=== PATIENT | male | born 1930 | race Caucasian/White ===

== ENCOUNTER → 2018-03-22 | Outpatient (CLI) | payer MEDICARE, BC ==
[~2018-03-22] MED LIST: ACET325 PO; ASCO500 PO; ASPI81EC PO; ATOR10 PO; CALCAVITDA PO; CEFP200 PO; DUTA.5 PO; ENAL5 PO; ERGO400 PO; FISH1000 PO; FOLBIC PO; FURO20 PO; FURO40 PO; MAGOXI400 PO; METO25ER PO; MSM PO; MULVITMIND PO; Micro-K10 MEQ PO; NIAC500ER PO; Norco 5-325 Ta1 EACH PO; OMEP40CA12 PO; POTCHL20ER PO; PROM25 PO; Robaxin500 MG PO; TAMS.4ER PO; VALS80 PO; VITAMIN D-32000 UNI1 PO; WARF2.5 PO; WARF5 PO; [UNRECOGNIZED DRUG - CODE] PO
[2018-03-22 13:07] LABS: BASOPHILS ABSOLUTE AUTO 0.02 K/mm3 (0.00-0.23); BASOPHILS PERCENT AUTO 0 % (0-2); EOSINOPHILS ABSOLUTE AUTO 0.06 K/mm3 (0.00-0.68); EOSINOPHILS PERCENT AUTO 1 % (0-6); Hematocrit 37.6 % (37.0-53.0); Hemoglobin 12.7 g/dL (13.5-17.5); IMMATURE GRAN ABSOLUTE AUTO 0.03 K/mm3 (0.00-0.10); IMMATURE GRAN PERCENT AUTO 0 % (0-1); LYMPHOCYTES ABSOLUTE AUTO 0.81 K/mm3 (0.84-5.20); LYMPHOCYTES PERCENT AUTO 12 % (21-46); MONOCYTES ABSOLUTE AUTO 0.78 K/mm3 (0.16-1.47); MONOCYTES PERCENT AUTO 11 % (4-13); Mean Corpuscular HGB 31.7 pg (26.0-34.0); Mean Corpuscular HGB Conc 33.8 g/dL (31.5-36.5); Mean Corpuscular Volume 94 fL (80-100); Mean Platelet Volume 10.6 fL (9.1-12.4); NEUTROPHILS ABSOLUTE AUTO 5.34 K/mm3 (1.96-9.15); NEUTROPHILS PERCENT AUTO 76 % (41-73); Platelet Count 139 K/mm3 (150-400); RDW Coefficient Variation 14.8 % (11.7-14.2); RDW Standard Deviation 51.3 fL (35.1-46.3); Red Blood Cell Count 4.01 M/mm3 (4.30-5.90); White Blood Cell Count 7.04 K/mm3 (4.00-11.30)
[2018-03-22 13:13] LABS: Bun/Creatinine Ratio 15.4 (12.0-20.0); Calcium, Blood 8.2 mg/dL (8.5-10.1); Creatinine, Blood 1.17 mg/dL (0.60-1.20); Potassium, Blood 3.7 mmol/L (3.5-5.5)
== END | disposition home or self-care (01) ==
LOC: LAB EV 13:04 → LAB SHORT 13:04
PROVIDERS: Family Medicine
DX: L03.90 Cellulitis, unspecified (principal)
CPT/HCPCS: 80048; 85025

== ENCOUNTER 2018-05-02 23:12 | Inpatient (IN) | payer MEDICARE, BC ==
[~2018-05-02] VITALS: Ht 175 cm; Wt 96.8 kg
[~2018-05-02 23:12] MED LIST changes: +CYAN500 PO; +ENAL10 PO; -ENAL5 PO; -[UNRECOGNIZED DRUG - CODE] PO
[2018-05-03] MEDS ORDERED: AMLO5 PO (00:30)
[2018-05-03] MEDS ORDERED: ELIQUIS2.5 MG PO (00:31)
[2018-05-03 00:42] LABS: BASOPHILS ABSOLUTE AUTO 0.02 K/mm3 (0.00-0.23); BASOPHILS PERCENT AUTO 0 % (0-2); EOSINOPHILS PERCENT AUTO 0 % (0-6); Hematocrit 37.4 % (37.0-53.0); IMMATURE GRAN ABSOLUTE AUTO 0.06 K/mm3 (0.00-0.10); IMMATURE GRAN PERCENT AUTO 1 % (0-1); LYMPHOCYTES ABSOLUTE AUTO 0.31 K/mm3 (0.84-5.20); LYMPHOCYTES PERCENT AUTO 3 % (21-46); MONOCYTES ABSOLUTE AUTO 0.77 K/mm3 (0.16-1.47); MONOCYTES PERCENT AUTO 8 % (4-13); Mean Corpuscular HGB 30.5 pg (26.0-34.0); Mean Corpuscular HGB Conc 32.1 g/dL (31.5-36.5); Mean Corpuscular Volume 95 fL (80-100); Mean Platelet Volume 10.6 fL (9.1-12.4); NEUTROPHILS ABSOLUTE AUTO 8.55 K/mm3 (1.96-9.15); NEUTROPHILS PERCENT AUTO 88 % (41-73); Platelet Count 153 K/mm3 (150-400); RDW Coefficient Variation 15.3 % (11.7-14.2); Red Blood Cell Count 3.93 M/mm3 (4.30-5.90); White Blood Cell Count 9.71 K/mm3 (4.00-11.30)
[2018-05-03 00:47] LABS: Influenza A Negative (NEGATIVE); Influenza B Negative (NEGATIVE)
[2018-05-03 01:03] LABS: Alanine Aminotransfer (ALT/SGP 25 U/L (12-78); Albumin/Globulin Ratio 0.8 (0.8-1.8); Alk Phos 90 U/L (50-136); Anion Gap 9 mmol/L (6-16); Aspartate Aminotrans (AST/SGOT 37 U/L (12-37); Bilirubin, Total 2.8 mg/dL (0.1-1.0); Blood Urea Nitrogen 16 mg/dL (8-24); Bun/Creatinine Ratio 18.3 (12.0-20.0); CO2, Blood 23 mmol/L (21-32); Calcium, Blood 8.5 mg/dL (8.5-10.1); Chloride, Blood 108 mmol/L (98-108); Creatinine, Blood 0.87 mg/dL (0.60-1.20); Globulin, Blood 3.7 g/dL (2.2-4.0); Glomerular Filtration Rate >60 (60-); Glucose, Blood 128 mg/dL (70-99); Potassium, Blood 4.2 mmol/L (3.5-5.5); Sodium, Blood 140 mmol/L (136-145); Total Protein, Blood 6.7 g/dL (6.4-8.2); Troponin I 0.036 ng/mL (0.000-0.040)
[2018-05-03 01:53] LABS: Source, Urine Clean Catch
[2018-05-03 01:55] LABS: Appearance, Urine Clear (Clear); Bilirubin, Urine Neg (Neg); Blood, Urine 1+ (Neg); Color, Urine Amber (P-Yellow); Glucose Qualitative, Urine Neg (Neg); Ketones, Urine 1+ (Neg); Leukocyte Esterase, Urine 1+ (Neg); Nitrite, Urine Neg (Neg); Protein, Urine 2+ (Neg); Urobilinogen, Urine 1+ (Normal)
[2018-05-03 02:01] LABS: Bacteria Many /hpf; Mucus Mod (0-Heavy); Red Blood Cells, Urine 0-2 /hpf (0-2); Squamous Epithelial Cells Few /hpf (Few)
[2018-05-03] MEDS ORDERED: Norco 10-325 T1 EACH PO (06:28)
--- NOTE | 2018-05-03 06:53 | NUR ---
ADMIT NOTE PATIENT ADMITTED EARLIER THIS SHIFT. PATIENT PLEASENT AND COOPERATIVE. PATIENT VERY HARD OF HEARING. AT THE BEDSIDE. PATIENT ORIENTED TO THE ROOM, UNIT, AND CALL LIGHT. PATIENT'S LEGS ARE VERY EDEMATOUS AND THE FOOT OF THE BED IS ELEVATED. PATIENT APPEARS TO BE SLEEPING WELL AT THIS TIME. CALL LIGHT WITHIN REACH. WILL CONTINUE TO MONITOR PATIENT AND REPORT TO ONCOMING RN.
[2018-05-03 09:12] LABS: BASOPHILS ABSOLUTE AUTO 0.01 K/mm3 (0.00-0.23); BASOPHILS PERCENT AUTO 0 % (0-2); EOSINOPHILS PERCENT AUTO 0 % (0-6); Hematocrit 37.5 % (37.0-53.0); IMMATURE GRAN ABSOLUTE AUTO 0.05 K/mm3 (0.00-0.10); IMMATURE GRAN PERCENT AUTO 1 % (0-1); LYMPHOCYTES ABSOLUTE AUTO 0.59 K/mm3 (0.84-5.20); LYMPHOCYTES PERCENT AUTO 7 % (21-46); MONOCYTES ABSOLUTE AUTO 0.77 K/mm3 (0.16-1.47); MONOCYTES PERCENT AUTO 9 % (4-13); Mean Corpuscular Volume 97 fL (80-100); Mean Platelet Volume 10.3 fL (9.1-12.4); NEUTROPHILS ABSOLUTE AUTO 7.55 K/mm3 (1.96-9.15); NEUTROPHILS PERCENT AUTO 84 % (41-73); Platelet Count 137 K/mm3 (150-400); RDW Coefficient Variation 15.6 % (11.7-14.2); RDW Standard Deviation 54.5 fL (35.1-46.3); Red Blood Cell Count 3.87 M/mm3 (4.30-5.90); White Blood Cell Count 8.97 K/mm3 (4.00-11.30)
--- NOTE | 2018-05-03 17:10 | NUR ---
SHIFT SUMMARY PT RESTING IN BED AND RECLINER THROUGHOUT THE DAY. VSS. ALERT AND ORIENTED X3. DENIES PAIN THROUGHOUT THE DAY. LUNG SOUNDS CLEAR. RIGHT LEG RED AND WARM, 3+ PITTING EDEMA NOTED, LEFT LEG 3+ PITTING EDEMA NOTED. UP TO RECLINER WITH 1 PERSON ASSIST WITH FWW AND GAIT BELT. PT TOLERATED WELL. AT BEDSIDE THROUGHOUT THE DAY. PER FAMILY, HOLDING ELIQUIS STARTING TODAY FOR SURGERY WITH DR. MCHUGH LATER THIS WEEK. WILL CONTINUE TO MONITOR.
--- NOTE | 2018-05-03 18:49 | NUR ---
PT STABLE FOR TRANSFER TO SURGICAL FLOOR. REPORT CALLED TO ANDERS HERNANDEZ ON SURGICAL FLOOR. PT TRANSFERED VIA WHEELCHAIR TO SURGICAL FLOOR WITH BELONGINGS.
--- NOTE | 2018-05-03 19:40 | NUR ---
PT TRANSFERRED INTO ROOM 222 FROM PCU. PT IS AWAKE, A&O X4, RESP UNLABORED, VSS. 1 PERSON ASSIST USING FWW AND A GAIT BELT. PT HAS VOIDED. LEGS ELEVATED. CALL LIGHT IN REACH. REPORT GIVEN TO FATEMEH HERNANDEZ.
--- NOTE | 2018-05-04 04:52 | NUR ---
SHIFT SUMMARY: PT RESTING IN BED MOST OF SHIFT. A&O X4, VS WNL. LEGS ELEVATED ON PILLOWS. PT REPORTS FEELING COMFORTABLE AND DENIES PAIN. R LEG SWOLLEN AND WARM TO THE TOUCH; 4+ PITTING EDEMA NOTED. 3+ PITTING EDEMA TO L LEG. PT OOB ONCE WITH 2 MOD ASSIST W/FWW. PT REPORTS FEELING WEAK UPON STANDING AND STATES HIS RIGHT LEG WILL OCC "GIVE OUT". VOIDING IN URINAL PRN WITH ASSISTANCE. BLADDER SCANNED POST VOID SHOWED 141 ML. PLAN FOR SURGERY THIS WEEK WITH DR MCHUGH. HOLDING [employer] AT THIS TIME.
--- NOTE | 2018-05-04 10:32 | NUR ---
Patient was sitting in a chair and alert when I entered the room. Patient's spouse, Gwen, is bedside. Patient openly shared about his family, his aston and his medical history. Patient described the some unique events in his past as God events. I listened empathically, highlighted the amazing triumphs in his life, provided a calming presence and provided prayer. Patient responded well and showed signs of an elevated mood.
--- NOTE | 2018-05-04 18:14 | NUR ---
SHIFT SUMMARY PT A&OX4, VSS. PT REP COUGH AND SOB IMPROVING. UP TO CHAIR T/O SHIFT. AMB SBA W/FWW, REP WEAKNESS, AND RLE CAN "GIVE OUT." CAN AMB TO BRP, VOIDING WELL, USES URINAL OVERNIGHT W/ASSIST. LISA PO, DENIES N&V. DENIES PAIN. PT HAS A PRESCHEDULED CT FLUID ASPIRATION FOR RLE EDEMA W/RADIOLOGY ON THURSDAY AT 1400 HERE (ELIQUIS HAS BEEN HELD SINCE THURSDAY ACCORDING TO OLMAN). PT NEEDS A PT/PTT LAB DRAW ON THURSDAY THAT WAS SUPPOSED TO BE ORDERED BY DR MCHUGH'S OFFICE. WILL CTM & TX PER EMAR UNTIL REPORT GIVEN TO ONCOMING FATEMEH RN.
--- NOTE | 2018-05-05 04:18 | NUR ---
SHIFT SUMMARY: PT HAS DONE WELL THIS SHIFT. A&O X4, VS WNL. TRANSFERED FROM CHAIR TO BED IN BEGINNING OF SHIFT. 2 MAX ASSIST STAND/PIVOT. PT REPORTS FEELING VERY WEAK IN R LEG. 4+ EDEMA TO RLE AND 3+ TO LLE. RIGHT LEG IS WARM TO TOUCH. USING URINAL AT BEDSIDE WITH ASSIST. VOIDING WELL. WILL START LASIX THIS AM. LISA PO, DENIES N/V. DENIES PAIN. PLAN FOR CT FLUID ASPIRATION TO RLE EDEMA WITH RADIOLOGY ON THURSDAY AT 1400. PROCEDURE SCHED OUT PATIENT. CONTINUE TO HOLD [email or web address].
--- NOTE | 2018-05-05 18:45 | NUR ---
SHIFT SUMMARY PT HAS BEEN A 1-2 ASSIST WHEN OOB. PLAN FOR DRAINAGE OF FLUID FROM RLE TOMORROW. FAMILY HAS BEEN PRESENT FOR SUPPORT. VSS. WILL MONITOR UNTIL REPORT TO ONCOMING RN.
[2018-05-06 04:45] LABS: International Normalized Ratio 1.25
--- NOTE | 2018-05-06 07:16 | NUR ---
SHIFT SUMMARY PT REMAINS ON FLOOR FOR PNEUMONIA, TX WITH ABX PER EMAR. PT IS GENERALLY ORIENTED BUT FORGETFUL AND DID ATTEMPT TO GET UP BY HIMSELF LAST NIGHT, SO BED ALARM IS ON FOR SAFETY. PT HAS SWELLING TO BLE, RIGHT LEG MORE SWOLLEN THAN LEFT AND RED AND WARM. USED BRAD LIFT UP TO BSC D/T PT WEAKNESS LAST NIGHT AND HE HAD A BM. LUNGS ARE DIM BUT CLEAR, THOUGH HE CONTINUES TO HAVE SOME SOB EVEN AT REST. PT USED URINAL, PEEING SMALL AMOUNTS AT A TIME. REPORT PASSED TO ONCOMING SHIFT.
--- NOTE | 2018-05-06 09:41 | NUR ---
ASSUMED CARE OF PT FROM DAVID GORDON.
--- NOTE | 2018-05-06 18:21 | NUR ---
SUMMARY NO ACUTE CHANGES SINCE ASSUMING CARE OF PT. WENT TO US FOR ASPIRATION OF R GROIN APPROXIMATELY NOON THIS SHIFT. PLEASANT AND COOPERATIVE. SPOUSE AT BEDSIDE FOR PORTION OF SHIFT. CALL LIGHT IN REACH. BED ALARM ON. PT MAX TWO PERSON ASSIST DURING SHIFT.
--- NOTE | 2018-05-07 05:10 | NUR ---
SHIFT SUMMARY PT REMAINS ON FLOOR FOR PNEUMONIA. NO ACUTE CHANGES OVERNIGHT. BED ALARM ON FOR SAFETY PT WILL WAKE UP AND TRY TO GET OUT OF BED TO USE THE BATHROOM. PT HAD A BM LAST NIGHT. HE HAS SOME NEW SWELLING IN THE SCROTUM, POSITIONED FOR COMFORT. PT STILL BECOMES SOB WITH EVEN MINIMAL EXERTION. 1-2 ASSIST FOR REPOSITIONING. WILL CTM UNTIL PASS TO NEXT SHIFT.
--- NOTE | 2018-05-07 18:12 | NUR ---
SUMMARY NO ACUTE CHANGES T/O SHIFT. PT WORKED W/THERAPY. SAT UP IN CHAIR MOST OF SHIFT. EATING DINNER AT THIS TIME. CALL LIGHT IN REACH.
--- NOTE | 2018-05-08 05:44 | NUR ---
SHIFT SUMMARY: NO ACUTE CHANGES OVER NIGHT. RIGHT LEG REMAINS SWOLLEN, RED AND WARM TO TOUCH. 3+ EDEMA NOTED, 2+ TO L LEG. SWELLING NOTED TO SCROTUM WELL. URINATING SMALL AMTS. CALLING APPROPRIATLY FOR ASSISTANCE WITH URINAL. PT TRANSFERED FROM CHAIR TO BED USING BRAD LIFT. PT APPEARS TO BE SOB ON EXERTION AND AT REST, HOWEVER WHEN ASKED, DENIES SOB. O2 SATS REMAIN STABLE ABOVE 92%. ALL VS WNL. LISA REG DIET, DENIES N/V. DRINKING [place] AMT. SALINE LOCKED EXCEPT WHEN GETTING SCHED IV ABX. PLAN FOR POSSIBLE SNF.
--- NOTE | 2018-05-08 16:00 | NUR ---
DISCHARGE: [facility] SENT TO [facility] PRESENT AT DISCHARGE. PT SENT WITH PAPERWORK. REPORT GIVEN TO SHAUNA AT [facility] NO SORES TO HEELS OR BOTTOM ON ASSESSMENT EARLIER TODAY. IV OUT WNL.
== END 2018-05-08 16:04 | DRG 194 ==
LOC: ER 23:12 → PCU 23:13 → SURS 23:13 → PCU 05-03 04:40 → ER 05-03 04:40 → SURS 05-03 04:49 → PCU 05-03 04:57 → SURS 05-03 18:45 → PCU 05-03 18:45 → SURS 05-05 16:19
PROVIDERS: Emergency Medicine; Internal Medicine; ADMIT Hospitalist
PROC: 0Y9 Anatomical Regions, Lower Extremities, Drainage (ICD-10-PCS; principal; 2018-05-07)
DX: J18.1 Lobar pneumonia, unspecified organism (principal); I50.32 Chronic diastolic (congestive) heart failure; I87.1 Compression of vein; I11.0 Hypertensive heart disease with heart failure; E78.5 Hyperlipidemia, unspecified; F03.90 Unspecified dementia, unspecified severity, without behavioral disturbance, psychotic disturbance, mood disturbance, and anxiety; I25.10 Atherosclerotic heart disease of native coronary artery without angina pectoris; I48.2 Chronic atrial fibrillation; N40.0 Benign prostatic hyperplasia without lower urinary tract symptoms; Z86.73 Personal history of transient ischemic attack (TIA), and cerebral infarction without residual deficits; Z95.0 Presence of cardiac pacemaker; R62.7 Adult failure to thrive; M71.22 Synovial cyst of popliteal space [Baker], left knee; Z66 Do not resuscitate; R60.0 Localized edema; Z87.891 Personal history of nicotine dependence
CPT/HCPCS: 10030; 36415; 71046; 76882; 80053; 81001; 83605; 83880; 84484; 85025; 85610; 85730; 87040; 87086; 87804; 93005; 93010; 96361; 96365; 96366; 96367; 97110; 97116; 97162; 97165; 97530; 97535; 99285-25; G0378; J0456; J0696; J1650; J7030; J7050

== ENCOUNTER 2018-05-27 18:03 | Inpatient (IN) | payer MEDICARE, BC ==
[~2018-05-27] VITALS: Ht 177.8 cm; Wt 97.9 kg
[~2018-05-27 18:03] MED LIST changes: +AMLO5 PO; +CHOL10002; +ELIQUIS2.5 MG PO; +Norco 10-325 T1 EACH PO; -VITAMIN D-32000 UNI1 PO
[2018-05-27] MEDS ORDERED: GUAI600T33 PO (18:37)
[2018-05-27] MEDS ORDERED: CEPH500 PO (18:38)
[2018-05-27] MEDS ORDERED: ALBU2.5V5 NEB (18:41)
[2018-05-27] MEDS ORDERED: SENN187 PO (18:43)
[2018-05-27 18:59] LABS: BASOPHILS ABSOLUTE AUTO 0.01 K/mm3 (0.00-0.23); BASOPHILS PERCENT AUTO 0 % (0-2); EOSINOPHILS ABSOLUTE AUTO 0.01 K/mm3 (0.00-0.68); EOSINOPHILS PERCENT AUTO 0 % (0-6); Hematocrit 36.1 % (37.0-53.0); IMMATURE GRAN ABSOLUTE AUTO 0.01 K/mm3 (0.00-0.10); IMMATURE GRAN PERCENT AUTO 0 % (0-1); LYMPHOCYTES ABSOLUTE AUTO 0.29 K/mm3 (0.84-5.20); LYMPHOCYTES PERCENT AUTO 6 % (21-46); MONOCYTES ABSOLUTE AUTO 0.88 K/mm3 (0.16-1.47); MONOCYTES PERCENT AUTO 17 % (4-13); Mean Corpuscular HGB 30.6 pg (26.0-34.0); Mean Corpuscular HGB Conc 30.5 g/dL (31.5-36.5); Mean Corpuscular Volume 101 fL (80-100); Mean Platelet Volume 10.6 fL (9.1-12.4); NEUTROPHILS ABSOLUTE AUTO 3.89 K/mm3 (1.96-9.15); NEUTROPHILS PERCENT AUTO 76 % (41-73); Platelet Count 130 K/mm3 (150-400); RDW Coefficient Variation 15.9 % (11.7-14.2); RDW Standard Deviation 59.1 fL (35.1-46.3); Red Blood Cell Count 3.59 M/mm3 (4.30-5.90); White Blood Cell Count 5.09 K/mm3 (4.00-11.30)
[2018-05-27] MEDS ORDERED: MIRALAX17 GM PO (18:59)
[2018-05-27] MEDS ORDERED: ELIQUIS2.5 MG PO (19:02)
[2018-05-27 19:11] LABS: Alanine Aminotransfer (ALT/SGP 22 U/L (12-78); Albumin, Blood 2.3 g/dL (3.4-5.0); Albumin/Globulin Ratio 0.6 (0.8-1.8); Alk Phos 98 U/L (50-136); Anion Gap 9 mmol/L (6-16); Aspartate Aminotrans (AST/SGOT 27 U/L (12-37); Blood Urea Nitrogen 13 mg/dL (8-24); Bun/Creatinine Ratio 15.9 (12.0-20.0); CO2, Blood 21 mmol/L (21-32); Calcium, Blood 7.7 mg/dL (8.5-10.1); Chloride, Blood 110 mmol/L (98-108); Creatinine, Blood 0.82 mg/dL (0.60-1.20); Globulin, Blood 4.1 g/dL (2.2-4.0); Glomerular Filtration Rate >60 (60-); Glucose, Blood 107 mg/dL (70-99); Potassium, Blood 3.8 mmol/L (3.5-5.5); Sodium, Blood 140 mmol/L (136-145); Total Protein, Blood 6.4 g/dL (6.4-8.2)
[2018-05-27 20:18] LABS: Source, Urine Clean Catch
[2018-05-27 20:20] LABS: Bilirubin, Urine Neg (Neg); Blood, Urine 1+ (Neg); Glucose Qualitative, Urine Neg (Neg); Ketones, Urine 1+ (Neg); Leukocyte Esterase, Urine 1+ (Neg); Nitrite, Urine Neg (Neg); Protein, Urine 2+ (Neg); Urobilinogen, Urine NORM (Normal)
[2018-05-27 20:25] LABS: Appearance, Urine Clear (Clear); Color, Urine Yellow (P-Yellow)
[2018-05-27 20:27] LABS: Bacteria Few /hpf; Mucus Light ({null, 0-Heavy}); Red Blood Cells, Urine 0-2 /hpf (0-2); Squamous Epithelial Cells Few /hpf (Few)
[2018-05-28 05:41] LABS: Hematocrit 35.1 % (37.0-53.0); Mean Corpuscular HGB 30.1 pg (26.0-34.0); Mean Corpuscular HGB Conc 31.3 g/dL (31.5-36.5); Platelet Count 174 K/mm3 (150-400); RDW Coefficient Variation 15.9 % (11.7-14.2); RDW Standard Deviation 55.5 fL (35.1-46.3); Red Blood Cell Count 3.66 M/mm3 (4.30-5.90); White Blood Cell Count 3.99 K/mm3 (4.00-11.30)
[2018-05-28 05:46] LABS: Mean Corpuscular Volume 96 fL (80-100)
[2018-05-28 06:05] LABS: Anion Gap 7 mmol/L (6-16); Blood Urea Nitrogen 13 mg/dL (8-24); Bun/Creatinine Ratio 13.7 (12.0-20.0); CO2, Blood 27 mmol/L (21-32); Chloride, Blood 109 mmol/L (98-108); Creatinine, Blood 0.95 mg/dL (0.60-1.20); Glomerular Filtration Rate >60 (60-); Glucose, Blood 84 mg/dL (70-99); Magnesium, Blood 2.2 mg/dL (1.6-2.4); Potassium, Blood 3.7 mmol/L (3.5-5.5); Sodium, Blood 143 mmol/L (136-145)
--- NOTE | 2018-05-28 07:43 | NUR ---
SHIFT SUMMARY PT NEW ADMIT TO FLOOR LAST NIGHT. HE SLEPT WELL T/O NIGHT. AOX4, VERY UNGA, FOLLOWS DIRECTIONS & ANSWERS QUESTIONS APPROPRIATELY. DENIES PAIN OR NAUSEA. REPORTS SOB W/VERY LITTLE ACTIVITY, EVEN W/REPOSITIONING IN BED. SPO2 >90% ON RA W/LUNG SOUNDS DIM T/O, PT HAS A DRY NONPRODUCTIVE COUGH. CALLS FOR ASSISTANCE W/URINAL & IS INCONTINENT/CONTINENT. HAS BEEN AT BEDSIDE T/O NIGHT. CALL LIGHT IN REACH.
--- NOTE | 2018-05-28 14:00 | NUR ---
IV DRESSING CHANGED, BLOOD PRESENT ON DRESSING. FLUSHES WELL AND BLOOD RETURN PRESENT.
--- NOTE | 2018-05-28 14:18 | NUR ---
Spiritual care visit conducted. Patient is lying on the bed with spouse Gwen bedside. Patient and Gwen fill me in on patient's medical history, about their 67 years of marriage and the good they find in each day. Patient and Gwen presented no spiritual crisis but welcomed a visit centered around God. I listened empathically, reinforced helpful attitudes and practices and provided prayer. Patient and Gwen responded well and showed signs of an elevated mood.
--- NOTE | 2018-05-28 18:59 | NUR ---
SHIFT SUMMARY PATIENT A&O X3. Q2 REPOSITION. DENIES ANY PAIN. C/O SOB AT TIMES. BREATHING TX PER RT PRN. ON RA, SATS >90%. BLE VERY EDEMATOUS. REDNESS TO BLE. LON HOSE IN PLACE. AT THE BEDSIDE. STRICT I&O. NO ACUTE CHANGES.
[2018-05-29 04:49] LABS: BASOPHILS ABSOLUTE AUTO 0.02 K/mm3 (0.00-0.23); BASOPHILS PERCENT AUTO 1 % (0-2); EOSINOPHILS ABSOLUTE AUTO 0.17 K/mm3 (0.00-0.68); EOSINOPHILS PERCENT AUTO 5 % (0-6); Hematocrit 35.6 % (37.0-53.0); Hemoglobin 11.3 g/dL (13.5-17.5); IMMATURE GRAN ABSOLUTE AUTO 0.01 K/mm3 (0.00-0.10); IMMATURE GRAN PERCENT AUTO 0 % (0-1); LYMPHOCYTES PERCENT AUTO 27 % (21-46); MONOCYTES ABSOLUTE AUTO 0.87 K/mm3 (0.16-1.47); MONOCYTES PERCENT AUTO 23 % (4-13); Mean Corpuscular HGB 30.2 pg (26.0-34.0); Mean Corpuscular HGB Conc 31.7 g/dL (31.5-36.5); Mean Corpuscular Volume 95 fL (80-100); NEUTROPHILS ABSOLUTE AUTO 1.71 K/mm3 (1.96-9.15); NEUTROPHILS PERCENT AUTO 45 % (41-73); Platelet Count 176 K/mm3 (150-400); RDW Coefficient Variation 15.8 % (11.7-14.2); RDW Standard Deviation 55.1 fL (35.1-46.3); Red Blood Cell Count 3.74 M/mm3 (4.30-5.90); White Blood Cell Count 3.78 K/mm3 (4.00-11.30)
[2018-05-29 05:16] LABS: Anion Gap 6 mmol/L (6-16); Blood Urea Nitrogen 14 mg/dL (8-24); Bun/Creatinine Ratio 14.8 (12.0-20.0); CO2, Blood 27 mmol/L (21-32); Calcium, Blood 7.9 mg/dL (8.5-10.1); Chloride, Blood 108 mmol/L (98-108); Creatinine, Blood 0.95 mg/dL (0.60-1.20); Glomerular Filtration Rate >60 (60-); Glucose, Blood 85 mg/dL (70-99); Potassium, Blood 3.5 mmol/L (3.5-5.5); Sodium, Blood 141 mmol/L (136-145)
--- NOTE | 2018-05-29 07:42 | NUR ---
NOT SHIFT SUMMARY PT HAS BEEN PLEASANT AND COOPERATIVE WITH CARE THIS NIGHT. HAS SLEPT MOST OF NIGHT. HAD INCREASED VIEW SCORE EARLY IN THE NIGHT RELATED TO FEVER. TREATED PER EMAR AND NOTIFIED POST MANAGER. FEVER RESOLVED AND VS NORMALIZED. ALSO NOTICED NEW SWELLING IN HIS PENIS EARLY IN THE MORNING WHILE HELPING WITH URINAL. PT WAS ABLE TO VOID APROX 30ML. INFORMED ONCOMING RN.
--- NOTE | 2018-05-29 20:32 | NUR ---
PT. LYING QUIETLY. US COMPLETED TODAY, PT. UP IN CHAIR WITH 2-PERSON ASSIST GAIT BELT AND FWW.
[2018-05-30 04:27] LABS: BASOPHILS ABSOLUTE AUTO 0.02 K/mm3 (0.00-0.23); BASOPHILS PERCENT AUTO 0 % (0-2); EOSINOPHILS ABSOLUTE AUTO 0.17 K/mm3 (0.00-0.68); EOSINOPHILS PERCENT AUTO 3 % (0-6); IMMATURE GRAN ABSOLUTE AUTO 0.01 K/mm3 (0.00-0.10); IMMATURE GRAN PERCENT AUTO 0 % (0-1); LYMPHOCYTES ABSOLUTE AUTO 0.76 K/mm3 (0.84-5.20); LYMPHOCYTES PERCENT AUTO 15 % (21-46); MONOCYTES ABSOLUTE AUTO 0.82 K/mm3 (0.16-1.47); MONOCYTES PERCENT AUTO 17 % (4-13); Mean Corpuscular HGB 30.6 pg (26.0-34.0); Mean Corpuscular HGB Conc 32.4 g/dL (31.5-36.5); Mean Corpuscular Volume 95 fL (80-100); Mean Platelet Volume 9.9 fL (9.1-12.4); NEUTROPHILS PERCENT AUTO 64 % (41-73); Platelet Count 165 K/mm3 (150-400); RDW Coefficient Variation 15.6 % (11.7-14.2); RDW Standard Deviation 54.3 fL (35.1-46.3); Red Blood Cell Count 3.59 M/mm3 (4.30-5.90); White Blood Cell Count 4.98 K/mm3 (4.00-11.30)
--- NOTE | 2018-05-30 06:14 | NUR ---
88 Y/O MALE SLEPT COMFORTABLY ALL EVENING. PTS HAS +3 EDEMA TO ENTIRE BODY NOTED. PT C/O COUGH AT TIMES WITH CEPACOL LOZENGE GIVEN WITH RELIEF FELT. PT DENIES PAIN OR NAUSEA. PT ALERT AND ORIENTED X 3. PTS BED IN LOW POSITION, BED ALARM APPLIED, CALL LIGHT AT SIDE.
--- NOTE | 2018-05-30 18:55 | NUR ---
PT. LYING QUIETLY, WAS GIVEN EXTRA DOSE OF LASIX THIS EVENING. NO NOTEABLE CHANGE IN HIS EDEMA YET AND BLE ARE STILL RED AND SWOLLEN. VSS AND HAS BEEN EATING WELL. LS ARE COARSE AND HAS A LOOSE MOIST COARSE COUGH BRINGING UP WHIT FOAMY SPUTUM. NO NOTEABLE CHANGES
--- NOTE | 2018-05-31 04:15 | NUR ---
88 Y/O MALE RESTED COMFORTABLY ALL EVENING. PTS VOIDING VIA URINAL (ATTENDS APPLIED) CLEAR YELLOW FLUID. PT HAS OCCASIONAL NON PRODUCTIVE COUGH. PT DENIES PAIN OR NAUSEA. PTS BED ALARM APPLIED, BED IN LOW POSITION, CALL LIGHT AT SIDE.
[2018-05-31 05:00] LABS: Anion Gap 5 mmol/L (6-16); Blood Urea Nitrogen 13 mg/dL (8-24); Bun/Creatinine Ratio 15.9 (12.0-20.0); CO2, Blood 29 mmol/L (21-32); Calcium, Blood 7.8 mg/dL (8.5-10.1); Chloride, Blood 105 mmol/L (98-108); Creatinine, Blood 0.82 mg/dL (0.60-1.20); Glomerular Filtration Rate >60 (60-); Glucose, Blood 89 mg/dL (70-99); Sodium, Blood 139 mmol/L (136-145)
--- NOTE | 2018-05-31 12:05 | NUR ---
Patient is being moved by OT from bed to chair when I arrive. I spoke with patient's , Gwen, while OT finished up. I then assessed patient's spiritual status. Patient stated that while he is having may medical issues he wonders if he will soon. Patient admits to losing hope sometimes. Patient states that he is ready for but also enjoys living. I facilitated a life review highlighting the many things that patient and Gwen have overcome. I provided emotional support, companionship and prayer. Patient and Gwen responded well and showed signs of restored aston and hope.
--- NOTE | 2018-05-31 19:22 | NUR ---
PATIENT ALERT BUT VERY FORGETFUL. COOPERATIVE. TRIES TO USE URINALBUT SOMETIMES MISSES URINAL. IV PATENT. REQUESTED OXYGEN ON. SATS WERE MID 90'S. SWELLING BILATERAL LEGS W/REDNESS TO CALVES W/LEFT DARKER RED THAN RT. EDEMA T/O BODY. GOOD APPETITE. REPORT TO NIGHT RN
--- NOTE | 2018-06-01 07:15 | NUR ---
remains swollen, able to use urinal but spills, a + o to self and place, WRANGELL and slow to respond, call light in reach, saline locked, 2 L via nc
--- NOTE | 2018-06-01 11:33 | NUR ---
Patient is lying in bed and alert with patient's , Gwen, bedside. Patient and Gwen had many stories to tell mostly revolving around their granddaughter who visited from [place] the previous day. I listened empathically, provided pastoral certified alcohol and drug counselor regarding and dying, provided companionship and prayer. Patient and Gwen responded well and thanked me for the visit.
--- NOTE | 2018-06-01 11:49 | NUR ---
PATIENT FORGETFUL. PLEASANT. LEFT LATERAL CALF NOT RED WAS YESTERDAY. RT CALFLIGHT RED W/ VERY FLAKEY SKIN. USES URINAL SOMETIMES WITH ASSISTANCE. SWELLING BLE HAS GONE DOWN A LITTLE. ABLE TO COUGH UP THICK PALE YELLOW SPUTUM. BED IN LOW POSITION. USES CALL LIGHT APPROPRIATELY. WCTM.
[2018-06-01 14:59] LABS: Anion Gap 5 mmol/L (6-16); Blood Urea Nitrogen 13 mg/dL (8-24); CO2, Blood 30 mmol/L (21-32); Calcium, Blood 7.9 mg/dL (8.5-10.1); Chloride, Blood 103 mmol/L (98-108); Creatinine, Blood 0.86 mg/dL (0.60-1.20); Glomerular Filtration Rate >60 (60-); Glucose, Blood 125 mg/dL (70-99); Potassium, Blood 3.5 mmol/L (3.5-5.5); Sodium, Blood 138 mmol/L (136-145)
--- NOTE | 2018-06-01 16:13 | NUR ---
ALERT. ORIENTED. FORGETFUL. PLEASANT. ABLE TO COUGH UP SPUTUM EARLY IN SHIFT. SWELLING IN LEGS LITTLE DECREASED TODAY COMPARED TO YESTERDAY. NO REAL CHANGES TO SWELLING ELSEWHERE. REDNESS TO LEGS DECREASED. USES CALL LIGHT APPROPRIATELY. TM
[2018-06-02 05:52] LABS: Anion Gap 5 mmol/L (6-16); Blood Urea Nitrogen 12 mg/dL (8-24); Bun/Creatinine Ratio 15.1 (12.0-20.0); CO2, Blood 31 mmol/L (21-32); Calcium, Blood 7.9 mg/dL (8.5-10.1); Chloride, Blood 105 mmol/L (98-108); Glomerular Filtration Rate >60 (60-); Glucose, Blood 90 mg/dL (70-99); Potassium, Blood 3.2 mmol/L (3.5-5.5); Sodium, Blood 141 mmol/L (136-145)
--- NOTE | 2018-06-02 07:19 | NUR ---
call light in reach, a+o but very [place] (he takes out his hearing aids at night) up with a lot of assistance, call light in reach, 2 L via nc, saline locked, report given to returing day shift
--- NOTE | 2018-06-02 08:58 | NUR ---
PT GAVE THIS STUDENT RN PERMISSION YESTERDAY TO CARE FOR HIM TODAY
--- NOTE | 2018-06-02 14:37 | NUR ---
dr.van toledo was in to see patient.
--- NOTE | 2018-06-02 14:42 | NUR ---
Spiritual Care visit conducted. Patient is sitting up on a chair and alert. Patient informed me that he had the doctors "stumped." Patient stated that he is hoping the "doctors come up with some answers soon." I listened empathically, provided companionship, and normalized patient's experience. Patient thanked me for the visit.
--- NOTE | 2018-06-02 19:23 | NUR ---
ALERT. ORIENTED. VERY FORGETFUL. EVERY TIME RN GOES IN AND ASKED PATIENT IF HE'S USED HIS FLUTTER VALVE HE STS"NOONE HAS SHOWED ME. " RN AND STUDENT RN HAVE SHOWN PATIENT MULTIPLE TIMES HOW TO USE. STILL HARSH MOIST SOUNDING COUGH. IS ABLE TO COUGH UP SPUTUM. COOPERATIVE. USES CALL LIGHT APPROPRIATELY. REPORT TO NIGHT RN
[2018-06-03 05:50] LABS: Anion Gap 5 mmol/L (6-16); Blood Urea Nitrogen 13 mg/dL (8-24); Bun/Creatinine Ratio 15.8 (12.0-20.0); CO2, Blood 32 mmol/L (21-32); Calcium, Blood 7.9 mg/dL (8.5-10.1); Chloride, Blood 105 mmol/L (98-108); Creatinine, Blood 0.82 mg/dL (0.60-1.20); Glomerular Filtration Rate >60 (60-); Glucose, Blood 84 mg/dL (70-99); Potassium, Blood 3.3 mmol/L (3.5-5.5); Sodium, Blood 142 mmol/L (136-145)
--- NOTE | 2018-06-03 07:24 | NUR ---
a+o, gambell without hearing aids, down for xray, call light in reach, saline locked, 2 L via nc, walking rounds completed with day staff.swelling remains
--- NOTE | 2018-06-03 14:03 | NUR ---
Spiritual care visit conducted. Patient once again took me down his memory carlos enrique. 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 Patient seems to energize himself as he tells his story. Patient's is bedside and helped fill in some details as needed in patient's story. I listened empathically, provided pastoral pet counselor, companionship and prayer. Patient responded well and showed evidence of an elevated mood.
--- NOTE | 2018-06-03 16:28 | NUR ---
PT IS ALERT AND ORIENTED AND COOPERATIVE WITH CARE. HE GOT OUT OF BED AND INTO THE RECLINER THIS MORNING BEFORE BREAKFAST AND HAS STAYED THERE SINCE. HE IS LAYING BACK IN THE RECLINER WITH HIS FEET UP. HE USES THE URINAL INDEPENDENTLY AND CALLS TO HAVE IT EMPTIED. HIS IS AT THE BEDSIDE. HE HAS BEEN NAPPING INTERMITTENTLY. HE PARTICIPATED WITH PHYSICAL THERAPY THIS AFTERNOON. HE HAS A WET, PRODUCTIVE COUGH PRODUCTING CLEAR SPUTUM. ON 2L O2 VIA NC. WILL CONTINUE TO MONITOR
--- NOTE | 2018-06-03 19:01 | NUR ---
Initial Visit: Palliative Care Consult for Goals of Care/Medically Fragile Pt is A&Ox4 and denies pain at this time. He reports pain in his left knee with exertion. Pt reports mild anxiety due to not knowing what his medical issue is for this hospital stay. Pt deneis SOB at this time. Engaged in therapeutic discussion regarding goals of care. Pt reports living at home with his Gwen. 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 He and his were not able to have children of their ownn. He and his Gwen adopted 2 boys and 2 girls. Pt reports his energy level has been declining recently. He requires the use of a walker at home. Currently during hospital stay he is a 1 person assist transfer with FWW. Pt experiences occasional incontinence. At base line Pt is able to bath and dress him self. He currently needs assistance with bathing and dressing. Listened as Pt expressed concern regarding his increased weakness and swelling. Educated Pt on diseas process of CHF. Suggested to have routine discussions with his PCP regarding his disease process and trajectory in order to plan accordingly. Engaged in therapeutic discussion of advanced care planning. Suggested to be proactive with his need for assistance with care. Pt reports his has been helpful but sees her strength declining somewhat. Suggested to consider hiring in home caregives to help with his needs. Also suggested the importance to be proactive with his disease process and to keep in mind at some point he may need higher level of care such as assisted living. V/U made by Pt. Pt reports no other concerns at this time. Spoke with Pt's bedside nurse Vani and she reported concerns regarding Pt's ability to help Pt with some of his needs. No other concerns reported at this time. Plan: Will place a social service consult for information regarding home care agencies. Will remain available.
--- NOTE | 2018-06-03 23:12 | NUR ---
06/03/18 6071 ASSISTED FROM LOUNGE CHAIR TO BED BY MARIA INES. HAD REFUSED TO GO BACK TO BED EARLIER. ATTENDS APPLIED AFTER MARY ELLEN-CARE. OFFERED TO TURN ON SIDE BUT REFUSED FOR NOW. BED ALARM ON. VITALS STABLE. VOIDING FREQUENTLY DUE TO LASIX MED. LEGS UP ON PILLOWS TO HELP DECREASE SWELLING.
[2018-06-04 05:14] LABS: Anion Gap 5 mmol/L (6-16); Blood Urea Nitrogen 14 mg/dL (8-24); Bun/Creatinine Ratio 16.3 (12.0-20.0); CO2, Blood 32 mmol/L (21-32); Calcium, Blood 7.9 mg/dL (8.5-10.1); Chloride, Blood 105 mmol/L (98-108); Creatinine, Blood 0.86 mg/dL (0.60-1.20); Glomerular Filtration Rate >60 (60-); Glucose, Blood 85 mg/dL (70-99); Potassium, Blood 3.3 mmol/L (3.5-5.5); Sodium, Blood 142 mmol/L (136-145)
[2018-06-04 07:59] LABS: BASOPHILS ABSOLUTE AUTO 0.01 K/mm3 (0.00-0.23); BASOPHILS PERCENT AUTO 0 % (0-2); EOSINOPHILS ABSOLUTE AUTO 0.25 K/mm3 (0.00-0.68); EOSINOPHILS PERCENT AUTO 5 % (0-6); Hematocrit 34.3 % (37.0-53.0); Hemoglobin 11.1 g/dL (13.5-17.5); IMMATURE GRAN ABSOLUTE AUTO 0.02 K/mm3 (0.00-0.10); IMMATURE GRAN PERCENT AUTO 0 % (0-1); LYMPHOCYTES ABSOLUTE AUTO 0.74 K/mm3 (0.84-5.20); LYMPHOCYTES PERCENT AUTO 16 % (21-46); MONOCYTES ABSOLUTE AUTO 0.63 K/mm3 (0.16-1.47); MONOCYTES PERCENT AUTO 14 % (4-13); Mean Corpuscular HGB 30.5 pg (26.0-34.0); Mean Corpuscular HGB Conc 32.4 g/dL (31.5-36.5); Mean Corpuscular Volume 94 fL (80-100); Mean Platelet Volume 10.6 fL (9.1-12.4); NEUTROPHILS ABSOLUTE AUTO 3.03 K/mm3 (1.96-9.15); NEUTROPHILS PERCENT AUTO 65 % (41-73); Platelet Count 201 K/mm3 (150-400); RDW Standard Deviation 51.9 fL (35.1-46.3); Red Blood Cell Count 3.64 M/mm3 (4.30-5.90); White Blood Cell Count 4.68 K/mm3 (4.00-11.30)
--- NOTE | 2018-06-04 14:03 | NUR ---
Patient is discouraged this day. Provided pastoral camp head counselor, emotional support and prayer. Patient responded well and showed signs of an elevated mood.
[2018-06-04 23:09] LABS: Anion Gap 7 mmol/L (6-16); Blood Urea Nitrogen 18 mg/dL (8-24); Bun/Creatinine Ratio 18.4 (12.0-20.0); CO2, Blood 33 mmol/L (21-32); Calcium, Blood 8.7 mg/dL (8.5-10.1); Chloride, Blood 101 mmol/L (98-108); Creatinine, Blood 0.98 mg/dL (0.60-1.20); Glomerular Filtration Rate >60 (60-); Glucose, Blood 110 mg/dL (70-99); Magnesium, Blood 1.9 mg/dL (1.6-2.4); Potassium, Blood 3.3 mmol/L (3.5-5.5); Sodium, Blood 141 mmol/L (136-145)
[2018-06-05 04:55] LABS: BASOPHILS ABSOLUTE AUTO 0.02 K/mm3 (0.00-0.23); BASOPHILS PERCENT AUTO 0 % (0-2); EOSINOPHILS ABSOLUTE AUTO 0.13 K/mm3 (0.00-0.68); EOSINOPHILS PERCENT AUTO 3 % (0-6); Hematocrit 35.6 % (37.0-53.0); Hemoglobin 11.3 g/dL (13.5-17.5); IMMATURE GRAN ABSOLUTE AUTO 0.01 K/mm3 (0.00-0.10); IMMATURE GRAN PERCENT AUTO 0 % (0-1); LYMPHOCYTES ABSOLUTE AUTO 0.76 K/mm3 (0.84-5.20); LYMPHOCYTES PERCENT AUTO 15 % (21-46); MONOCYTES ABSOLUTE AUTO 0.74 K/mm3 (0.16-1.47); MONOCYTES PERCENT AUTO 15 % (4-13); Mean Corpuscular HGB 29.7 pg (26.0-34.0); Mean Corpuscular HGB Conc 31.7 g/dL (31.5-36.5); Mean Corpuscular Volume 94 fL (80-100); Mean Platelet Volume 9.9 fL (9.1-12.4); NEUTROPHILS ABSOLUTE AUTO 3.38 K/mm3 (1.96-9.15); NEUTROPHILS PERCENT AUTO 67 % (41-73); Platelet Count 218 K/mm3 (150-400); RDW Coefficient Variation 14.8 % (11.7-14.2); RDW Standard Deviation 51.4 fL (35.1-46.3); White Blood Cell Count 5.04 K/mm3 (4.00-11.30)
[2018-06-05 05:57] LABS: Albumin, Blood 2.6 g/dL (3.4-5.0); Anion Gap 6 mmol/L (6-16); Blood Urea Nitrogen 17 mg/dL (8-24); Bun/Creatinine Ratio 17.9 (12.0-20.0); CO2, Blood 33 mmol/L (21-32); Calcium, Blood 8.6 mg/dL (8.5-10.1); Chloride, Blood 101 mmol/L (98-108); Creatinine, Blood 0.95 mg/dL (0.60-1.20); Glomerular Filtration Rate >60 (60-); Glucose, Blood 103 mg/dL (70-99); Phosphorus, Blood 3.1 mg/dL (2.5-4.9); Sodium, Blood 140 mmol/L (136-145)
--- NOTE | 2018-06-05 07:45 | NUR ---
patient slept well this shift but this morning he says he did not, also says he is having burning pain in his penis and feels like he cant pee. patient had 3200 ml out. paatient may need pyridium. passed this info to day shift nurse Ashely. Spoke to Dr Nova regarding his status.
[2018-06-05 14:17] LABS: Source, Urine Catheter
[2018-06-05 14:30] LABS: Appearance, Urine Clear (Clear); Bilirubin, Urine Neg (Neg); Blood, Urine 2+ (Neg); Color, Urine Yellow (P-Yellow); Glucose Qualitative, Urine Neg (Neg); Ketones, Urine Neg (Neg); Leukocyte Esterase, Urine Neg (Neg); Nitrite, Urine Neg (Neg); Protein, Urine Neg (Neg); Specific Gravity, Urine 1.015 (1.003-1.022); Urobilinogen, Urine NORM (Normal)
[2018-06-05 14:40] LABS: Bacteria Not Seen /hpf; Squamous Epithelial Cells Not Seen /hpf (Few); White Blood Cells, Urine 0-2 /hpf (0-5)
[2018-06-05 14:55] LABS: Anion Gap 6 mmol/L (6-16); Blood Urea Nitrogen 19 mg/dL (8-24); Bun/Creatinine Ratio 17.6 (12.0-20.0); CO2, Blood 34 mmol/L (21-32); Calcium, Blood 8.8 mg/dL (8.5-10.1); Chloride, Blood 99 mmol/L (98-108); Creatinine, Blood 1.08 mg/dL (0.60-1.20); Glomerular Filtration Rate >60 (60-); Glucose, Blood 133 mg/dL (70-99); Potassium, Blood 3.3 mmol/L (3.5-5.5); Sodium, Blood 139 mmol/L (136-145)
--- NOTE | 2018-06-05 17:36 | NUR ---
SHIFT SUMMARY PT AXO, PLEASANT AND COOPERATIVE WITH CARE THOUGH [facility]. PT COMPLAINED THIS MORNING OF BEING UNABLE TO VOID. AIR DRIER MACHINE OPERATOR BLADDER SCAN REVEALED [address] MARIN NOTIFIED WHO ORDERED REBOLLAR FOR RETENTION. PT WAS IN PAIN THAT WAS IMPROVED AFTER REBOLLAR WAS PLACED. VSS. IV PATENT AND SALINE LOCKED AT THIS TIME. BED IN LOW POSITION, CALL LIGHT WITHIN REACH. BLISTER ON R ANTERIOR GOMEZ PUNCTURED AND DRAINED PER DR MARIN. DRESSING IN PLACE AT THIS TIME. CONTINUES TO DRAIN.
[2018-06-06 05:32] LABS: Anion Gap 6 mmol/L (6-16); Blood Urea Nitrogen 19 mg/dL (8-24); Bun/Creatinine Ratio 17.8 (12.0-20.0); CO2, Blood 36 mmol/L (21-32); Calcium, Blood 8.8 mg/dL (8.5-10.1); Chloride, Blood 99 mmol/L (98-108); Creatinine, Blood 1.07 mg/dL (0.60-1.20); Glomerular Filtration Rate >60 (60-); Glucose, Blood 91 mg/dL (70-99); Magnesium, Blood 1.8 mg/dL (1.6-2.4); Potassium, Blood 3.5 mmol/L (3.5-5.5); Sodium, Blood 141 mmol/L (136-145)
--- NOTE | 2018-06-06 18:41 | NUR ---
SHIFT SUMMARY PT AXO, PLEASANT AND COOPERATIVE WITH CARE, THOUGH [facility]. BLOOD PRESENT IN REBOLLAR TUBING, DR MARIN AWARE. JELLY BANDAGE APPLIED TO LEGS. WOUND CARE COMPLETED THIS SHIFT, PICTURES IN CHART. IV PATENT AND SALINE LOCKED. UP TO CHAIR X1 THIS SHIFT. SEE IxO. BED IN LOW POSITION, CALL LIGHT WITHIN REACH
[2018-06-07 05:47] LABS: BASOPHILS ABSOLUTE AUTO 0.03 K/mm3 (0.00-0.23); BASOPHILS PERCENT AUTO 1 % (0-2); EOSINOPHILS ABSOLUTE AUTO 0.12 K/mm3 (0.00-0.68); EOSINOPHILS PERCENT AUTO 2 % (0-6); Hematocrit 36.8 % (37.0-53.0); IMMATURE GRAN ABSOLUTE AUTO 0.01 K/mm3 (0.00-0.10); IMMATURE GRAN PERCENT AUTO 0 % (0-1); LYMPHOCYTES ABSOLUTE AUTO 1.15 K/mm3 (0.84-5.20); LYMPHOCYTES PERCENT AUTO 18 % (21-46); MONOCYTES ABSOLUTE AUTO 0.94 K/mm3 (0.16-1.47); MONOCYTES PERCENT AUTO 15 % (4-13); Mean Corpuscular HGB 30.5 pg (26.0-34.0); Mean Corpuscular HGB Conc 32.6 g/dL (31.5-36.5); Mean Corpuscular Volume 93 fL (80-100); Mean Platelet Volume 10.1 fL (9.1-12.4); NEUTROPHILS ABSOLUTE AUTO 4.23 K/mm3 (1.96-9.15); NEUTROPHILS PERCENT AUTO 65 % (41-73); Platelet Count 249 K/mm3 (150-400); RDW Standard Deviation 51.7 fL (35.1-46.3); Red Blood Cell Count 3.94 M/mm3 (4.30-5.90); White Blood Cell Count 6.48 K/mm3 (4.00-11.30)
[2018-06-07 06:09] LABS: Albumin, Blood 2.9 g/dL (3.4-5.0); Anion Gap 8 mmol/L (6-16); Blood Urea Nitrogen 21 mg/dL (8-24); Bun/Creatinine Ratio 19.1 (12.0-20.0); CO2, Blood 39 mmol/L (21-32); Calcium, Blood 8.9 mg/dL (8.5-10.1); Chloride, Blood 92 mmol/L (98-108); Glomerular Filtration Rate >60 (60-); Glucose, Blood 95 mg/dL (70-99); Phosphorus, Blood 3.8 mg/dL (2.5-4.9); Potassium, Blood 3.1 mmol/L (3.5-5.5); Sodium, Blood 139 mmol/L (136-145)
[2018-06-07] MEDS ORDERED: OMEPRAZOLE MAGN20 MG PO (11:35)
[2018-06-07] MEDS ORDERED: Aldactone100 MG PO (11:38)
[2018-06-07] MEDS ORDERED: CEPACOL SORE T1 EACH MM (11:39)
--- NOTE | 2018-06-07 12:42 | NUR ---
PT D/C VIA WHEELCHAIR WITH [facility] AT 1240. [facility]. NO ONE ANSWERED WILL ATTEMPT TO CALL AGAIN.
--- NOTE | 2018-06-07 12:48 | NUR ---
REPORT CALLED TO DAVID HERNÁNDEZ AT [facility] 06/07/18 AT 6235.
== END 2018-06-07 12:38 | disposition home or self-care (01) | DRG 291 ==
LOC: ER 18:03 → MEDS 20:56 → ENPENDDIS 06-07 10:58 → EDPENDDIS 06-07 10:58 → MEDS 06-07 12:38
PROVIDERS: Emergency Medicine; Family Medicine; Internal Medicine Cardiovascular Disease; Internal Medicine Endocrinology, Diabetes & Metabolism; Nurse Practitioner Acute Care; Student in an Organized Health Care Education/Training Program; ADMIT Hospitalist
DX: I11.0 Hypertensive heart disease with heart failure (principal); Q28.2 Arteriovenous malformation of cerebral vessels; E87.2 Acidosis; L03.116 Cellulitis of left lower limb; L03.115 Cellulitis of right lower limb; L97.919 Non-pressure chronic ulcer of unspecified part of right lower leg with unspecified severity; F03.90 Unspecified dementia, unspecified severity, without behavioral disturbance, psychotic disturbance, mood disturbance, and anxiety; I25.10 Atherosclerotic heart disease of native coronary artery without angina pectoris; E78.5 Hyperlipidemia, unspecified; H91.90 Unspecified hearing loss, unspecified ear; Z86.73 Personal history of transient ischemic attack (TIA), and cerebral infarction without residual deficits; Z95.0 Presence of cardiac pacemaker; Z96.643 Presence of artificial hip joint, bilateral; Z87.891 Personal history of nicotine dependence; J44.9 Chronic obstructive pulmonary disease, unspecified; N50.1 Vascular disorders of male genital organs; E87.6 Hypokalemia; T50.2X5A Adverse effect of carbonic-anhydrase inhibitors, benzothiadiazides and other diuretics, initial encounter; Y92.239 Unspecified place in hospital as the place of occurrence of the external cause; E04.2 Nontoxic multinodular goiter; I25.2 Old myocardial infarction; I08.1 Rheumatic disorders of both mitral and tricuspid valves; R60.1 Generalized edema; I48.2 Chronic atrial fibrillation; I50.43 Acute on chronic combined systolic (congestive) and diastolic (congestive) heart failure; I83.019 Varicose veins of right lower extremity with ulcer of unspecified site
CPT/HCPCS: 36415; 71046; 74177; 76857; 80048; 80053; 80069; 81001; 83605; 83735; 83880; 84145; 84443; 85025; 85027; 87040; 87070; 87086; 87205; 93005; 93010; 93306; 93925; 93970; 94640; 94667; 94760; 96365; 96366; 96367; 97110; 97162; 97166; 97530; 97535; 99285-25; J0456; J0696; J1940; J2543; J3370; J7030; J7050; P9046; Q9967

== ENCOUNTER 2018-05-28 15:22 | Day surgery (SDC) | payer MEDICARE, BC ==
[~2018-05-28 15:22] MED LIST changes: +ALBU2.5V5 NEB; +CEPH500 PO; +GUAI600T33 PO; +MIRALAX17 GM PO; +SENN187 PO
== END 2018-05-28 23:30 | disposition home or self-care (01) ==
LOC: CT 15:22
DX: S70.01XA Contusion of right hip, initial encounter (principal)
CPT/HCPCS: 88108; 88305

== ENCOUNTER → 2018-08-09 | Outpatient (CLI) | payer MEDICARE, BC ==
[~2018-08-09] MED LIST changes: +Aldactone100 MG PO; +CEPACOL SORE T1 EACH MM; +OMEPRAZOLE MAGN20 MG PO
[2018-08-09 15:22] LABS: BASOPHILS ABSOLUTE AUTO 0.03 K/mm3 (0.00-0.23); BASOPHILS PERCENT AUTO 1 % (0-2); EOSINOPHILS ABSOLUTE AUTO 0.54 K/mm3 (0.00-0.68); EOSINOPHILS PERCENT AUTO 10 % (0-6); Hematocrit 38.5 % (37.0-53.0); Hemoglobin 12.9 g/dL (13.5-17.5); IMMATURE GRAN ABSOLUTE AUTO 0.01 K/mm3 (0.00-0.10); IMMATURE GRAN PERCENT AUTO 0 % (0-1); LYMPHOCYTES ABSOLUTE AUTO 1.69 K/mm3 (0.84-5.20); LYMPHOCYTES PERCENT AUTO 32 % (21-46); MONOCYTES ABSOLUTE AUTO 0.57 K/mm3 (0.16-1.47); MONOCYTES PERCENT AUTO 11 % (4-13); Mean Corpuscular HGB 31.7 pg (26.0-34.0); Mean Corpuscular HGB Conc 33.5 g/dL (31.5-36.5); Mean Corpuscular Volume 95 fL (80-100); Mean Platelet Volume 9.8 fL (9.1-12.4); NEUTROPHILS ABSOLUTE AUTO 2.45 K/mm3 (1.96-9.15); NEUTROPHILS PERCENT AUTO 46 % (41-73); Platelet Count 209 K/mm3 (150-400); RDW Coefficient Variation 17.4 % (11.7-14.2); RDW Standard Deviation 61.1 fL (35.1-46.3); Red Blood Cell Count 4.07 M/mm3 (4.30-5.90); White Blood Cell Count 5.29 K/mm3 (4.00-11.30)
== END | disposition home or self-care (01) ==
LOC: LAB SHORT 15:18 → LAB EV 15:18
PROVIDERS: Physician Assistant
DX: I95.9 Hypotension, unspecified (principal); N39.0 Urinary tract infection, site not specified
CPT/HCPCS: 85025; 87077; 87086; 87186

== ENCOUNTER → 2018-12-24 | Outpatient (CLI) | payer MEDICARE, BC | END | disposition home or self-care (01) | LOC: LAB SHORT 16:28 → LAB 16:28 | DX: L02.91 Cutaneous abscess, unspecified (principal) | CPT/HCPCS: 87070; 87205 ==